=== PATIENT | female | born 1955 | race Caucasian/White ===

== ENCOUNTER 2020-03-25 11:24 | Inpatient (IN) | payer OTHER ==
[2020-03-25 12:02] LABS: BASOPHIL 0.3 % (0-2); BILIRUBIN NEGATIVE (NEGATIVE); BLOOD NEGATIVE Ery/uL (NEGATIVE); CLARITY CLEAR (CLEAR); COLOR YELLOW (YELLOW); EOSINOPHIL 0.3 % (0-7); GLUCOSE (U) NORMAL (NORMAL); HCT 37.9 % (37.0-47.0); HGB 12.4 g/dl (12.5-16.0); LEUKOCYTES NEGATIVE Leu/uL (NEGATIVE); LYMPHOCYTE 18.2 % (15-48); MCH 31.1 pg (25.0-31.0); MCHC 32.7 g/dL (32.0-36.0); MONOCYTE 11.3 % (0-12); MPV 9.6 fL (6.0-9.5); NEUTROPHIL 69.3 % (41-80); NITRITE NEGATIVE (NEGATIVE); NRBC 0; PLT 322 K/uL (150-400); PROTEIN NEGATIVE (NEGATIVE); RBC 3.99 M/uL (4.20-5.40); RDW 13.2 % (11.5-14.0); SPECIFIC GRAVITY >=1.030 (1.001-1.030); UROBILINOGEN 0.2 mg/dL (0.2-1.0); WBC 14.2 K/uL (4.0-10.5)
[2020-03-25 12:19] LABS: ALBUMIN 3.5 g/dL (3.4-5.0); BILIRUBIN - TOTAL 0.3 mg/dL (0.2-1.0); BUN/CREAT RATIO (CALC) 17.9 RATIO; CREATININE 0.84 mg/dL (0.51-0.95); GLOBULIN (CALCULATION) 3.6 g/dL; POTASSIUM 4.2 mmol/L (3.5-5.1); TOTAL PROTEIN 7.1 g/dL (6.4-8.2)
[2020-03-25 12:23] LABS: LACTIC ACID 1.4 mmol/L (0.4-1.9)
[2020-03-25] MEDS ORDERED: VENTOLIN HFA IN18 GM INH (16:48)
[2020-03-25] MEDS ORDERED: ELIQUIS5 MG PO (16:49)
[2020-03-25] MEDS ORDERED: ZYRTEC10 MG PO (16:50)
[2020-03-25] MEDS ORDERED: CENTRUM SILVER1 EAC4 PO (16:50)
[2020-03-25] MEDS ORDERED: LASIX20 MG PO (16:51)
[2020-03-25] MEDS ORDERED: COZAAR100 MG PO (16:52)
[2020-03-25] MEDS ORDERED: SINGULAIR10 MG PO (16:52)
[2020-03-25] MEDS ORDERED: TOPROL XL 50 MG50 MG PO (16:52)
[2020-03-25] MEDS ORDERED: NITROQUIK SL0.4 MG SL (16:53)
[2020-03-25] MEDS ORDERED: PRILOSEC20 MG PO (16:53)
[2020-03-25] MEDS ORDERED: PREDNISONE 20MG20 MG PO (16:55)
[2020-03-25] MEDS ORDERED: ALDACTONE25 MG PO (16:56)
[2020-03-25] MEDS ORDERED: VENLAFAXINE HC225 MG PO (16:57)
[2020-03-25] MEDS ORDERED: [UNRECOGNIZED DRUG - REMARK] PO (16:57)
--- NOTE | 2020-03-25 18:30 | NUR ---
PER ORDER FROM DR ANNAMARIA OSWALD, 16FRENCH NG TUBE PLACED IN LEFT NARE. STAT KUB OBTAINED, DR KIM LOOKED AT XRAY AND GAVE VERBAL OKAY TO CONNECT NG TUBE TO LOW INTERMITTENT WALL SUCTION. PATIENT VOMITED DURING PROCEDURE, OTHERWISE TOLERATED NG TUBE PLACEMENT WITHOUT COMPLAINT
[2020-03-26 04:44] LABS: BASOPHIL 0.2 % (0-2); EOSINOPHIL 0.3 % (0-7); HCT 34.1 % (37.0-47.0); HGB 10.9 g/dl (12.5-16.0); LYMPHOCYTE 9.7 % (15-48); MCH 31.1 pg (25.0-31.0); MCV 97.2 fL (78.0-100.0); MONOCYTE 7.1 % (0-12); MPV 9.8 fL (6.0-9.5); NEUTROPHIL 82.3 % (41-80); NRBC 0; PLT 264 K/uL (150-400); RBC 3.51 M/uL (4.20-5.40); RDW 13.4 % (11.5-14.0); WBC 12.8 K/uL (4.0-10.5)
[2020-03-26 05:10] LABS: BILIRUBIN - TOTAL 0.5 mg/dL (0.2-1.0); BUN/CREAT RATIO (CALC) 23.5 RATIO; CREATININE 0.81 mg/dL (0.51-0.95); GLOBULIN (CALCULATION) 3.1 g/dL; MAGNESIUM 1.7 mg/dL (1.8-2.4); POTASSIUM 4.4 mmol/L (3.5-5.1); TOTAL PROTEIN 6.1 g/dL (6.4-8.2)
--- NOTE | 2020-03-26 11:55 | NUR ---
LIVES WITH BOYFRIEND; REPORTS SHE IS INDEPENDENT
[2020-03-27 05:35] LABS: BASOPHIL 0.2 % (0-2); EOSINOPHIL 2.2 % (0-7); HCT 32.7 % (37.0-47.0); HGB 10.4 g/dl (12.5-16.0); LYMPHOCYTE 23.1 % (15-48); MCH 31.8 pg (25.0-31.0); MCHC 31.8 g/dL (32.0-36.0); MONOCYTE 8.2 % (0-12); MPV 9.6 fL (6.0-9.5); NEUTROPHIL 65.9 % (41-80); NRBC 0; PLT 241 K/uL (150-400); RBC 3.27 M/uL (4.20-5.40); RDW 13.5 % (11.5-14.0); WBC 10.1 K/uL (4.0-10.5)
[2020-03-27 05:55] LABS: ALBUMIN 2.8 g/dL (3.4-5.0); BILIRUBIN - TOTAL 0.5 mg/dL (0.2-1.0); BUN/CREAT RATIO (CALC) 25.7 RATIO; CREATININE 0.74 mg/dL (0.51-0.95); POTASSIUM 4.1 mmol/L (3.5-5.1); TOTAL PROTEIN 5.8 g/dL (6.4-8.2)
--- NOTE | 2020-03-27 13:33 | NUR ---
NG TUBE FLUSHED WITH 60ML OF WATER AND HOOKED TO LOW WALL SUCTION ORDERED BY DR OSWALD.
[2020-03-28 04:45] LABS: BASOPHIL 0.2 % (0-2); EOSINOPHIL 0.9 % (0-7); HCT 32.6 % (37.0-47.0); HGB 10.1 g/dl (12.5-16.0); LYMPHOCYTE 17.5 % (15-48); MCH 31.1 pg (25.0-31.0); MCV 100.3 fL (78.0-100.0); MONOCYTE 9.1 % (0-12); MPV 9.7 fL (6.0-9.5); NEUTROPHIL 71.9 % (41-80); NRBC 0; PLT 255 K/uL (150-400); RBC 3.25 M/uL (4.20-5.40); RDW 13.2 % (11.5-14.0); WBC 10.6 K/uL (4.0-10.5)
[2020-03-28 05:07] LABS: ALBUMIN 2.7 g/dL (3.4-5.0); BILIRUBIN - TOTAL 0.5 mg/dL (0.2-1.0); CREATININE 0.63 mg/dL (0.51-0.95); GLOBULIN (CALCULATION) 3.2 g/dL; POTASSIUM 3.9 mmol/L (3.5-5.1); TOTAL PROTEIN 5.9 g/dL (6.4-8.2)
[2020-03-29 07:05] LABS: BASOPHIL 0.2 % (0-2); HCT 32.1 % (37.0-47.0); HGB 10.2 g/dl (12.5-16.0); LYMPHOCYTE 15.8 % (15-48); MCH 31.8 pg (25.0-31.0); MCHC 31.8 g/dL (32.0-36.0); MONOCYTE 8.7 % (0-12); MPV 9.8 fL (6.0-9.5); NEUTROPHIL 73.8 % (41-80); NRBC 0; PLT 244 K/uL (150-400); RBC 3.21 M/uL (4.20-5.40); RDW 13.2 % (11.5-14.0); WBC 9.3 K/uL (4.0-10.5)
[2020-03-29 07:37] LABS: ALBUMIN 2.7 g/dL (3.4-5.0); BILIRUBIN - TOTAL 0.5 mg/dL (0.2-1.0); BUN/CREAT RATIO (CALC) 26.7 RATIO; CREATININE 0.6 mg/dL (0.51-0.95); GLOBULIN (CALCULATION) 3.5 g/dL; POTASSIUM 3.9 mmol/L (3.5-5.1); TOTAL PROTEIN 6.2 g/dL (6.4-8.2)
--- NOTE | 2020-03-29 15:28 | NUR ---
DR. HOLDEN ANTICIPATES D/C HOME ON SATURDAY. HER NURSE, GEOFF, DOES NOT THINK PT. WILL REQUIRE ANY HOME HEALTH. ADVISED DR. HOLDEN OF THAT INFORMATION.
[2020-03-30 07:04] LABS: BASOPHIL 0.4 % (0-2); EOSINOPHIL 1.9 % (0-7); HCT 29.8 % (37.0-47.0); HGB 9.7 g/dl (12.5-16.0); LYMPHOCYTE 25.5 % (15-48); MCH 31.8 pg (25.0-31.0); MCHC 32.6 g/dL (32.0-36.0); MCV 97.7 fL (78.0-100.0); MONOCYTE 8.6 % (0-12); MPV 9.5 fL (6.0-9.5); NEUTROPHIL 63.1 % (41-80); NRBC 0; PLT 229 K/uL (150-400); RBC 3.05 M/uL (4.20-5.40); RDW 13.2 % (11.5-14.0); WBC 8.6 K/uL (4.0-10.5)
[2020-03-30 07:40] LABS: BUN/CREAT RATIO (CALC) 13.8 RATIO; CREATININE 0.58 mg/dL (0.51-0.95); POTASSIUM 3.6 mmol/L (3.5-5.1)
[2020-03-31 06:42] LABS: BASOPHIL 0.5 % (0-2); EOSINOPHIL 2.8 % (0-7); HCT 32.8 % (37.0-47.0); HGB 10.5 g/dl (12.5-16.0); LYMPHOCYTE 26.1 % (15-48); MCH 31.3 pg (25.0-31.0); MCV 97.9 fL (78.0-100.0); MONOCYTE 10.1 % (0-12); MPV 9.5 fL (6.0-9.5); NRBC 0; PLT 252 K/uL (150-400); RBC 3.35 M/uL (4.20-5.40); RDW 13.3 % (11.5-14.0); WBC 7.5 K/uL (4.0-10.5)
[2020-03-31 07:02] LABS: BUN/CREAT RATIO (CALC) 7.9 RATIO; CREATININE 0.63 mg/dL (0.51-0.95); POTASSIUM 3.4 mmol/L (3.5-5.1)
[2020-03-31] MEDS ORDERED: NORVASC5 MG PO (14:25)
== END 2020-03-31 15:10 | disposition home or self-care (01) | DRG 390 ==
LOC: FER 11:24 → FMS 14:52
PROVIDERS: Allergy & Immunology Allergy; Emergency Medicine; Internal Medicine; ADMIT Internal Medicine
PROC: 0D9670Z Drainage of Stomach with Drainage Device, Via Natural or Artificial Opening (ICD-10-PCS; principal; 2020-03-25)
DX: K56.51 Intestinal adhesions [bands], with partial obstruction (principal); I48.0 Paroxysmal atrial fibrillation; I10 Essential (primary) hypertension; J45.909 Unspecified asthma, uncomplicated; M72.2 Plantar fascial fibromatosis; F41.9 Anxiety disorder, unspecified; F32.9 Major depressive disorder, single episode, unspecified; G47.33 Obstructive sleep apnea (adult) (pediatric); Z20.828 Contact with and (suspected) exposure to other viral communicable diseases; K21.9 Gastro-esophageal reflux disease without esophagitis; R79.89 Other specified abnormal findings of blood chemistry; Z88.1 Allergy status to other antibiotic agents; Z88.0 Allergy status to penicillin; Z88.7 Allergy status to serum and vaccine; Z79.899 Other long term (current) drug therapy; Z79.01 Long term (current) use of anticoagulants; Z90.49 Acquired absence of other specified parts of digestive tract
CPT/HCPCS: 36415; 74018; 74019; 80048; 80053; 81003; 83605; 83690; 83735; 85025; 87040; J0743; J0780; J1170; J1956; J2270; J2405; J7030; Q9963; Q9967; U0002

== ENCOUNTER 2021-05-25 00:01 | Emergency (ER) | payer MEDICARE ==
[~2021-05-25 00:01] MED LIST: ALDACTONE25 MG PO; CENTRUM SILVER1 EAC4 PO; COZAAR100 MG PO; ELIQUIS5 MG PO; LASIX20 MG PO; NITROQUIK SL0.4 MG SL; NORVASC5 MG PO; PREDNISONE 20MG20 MG PO; PRILOSEC20 MG PO; SINGULAIR10 MG PO; TOPROL XL 50 MG50 MG PO; VENLAFAXINE HC225 MG PO; VENTOLIN HFA IN18 GM INH; ZYRTEC10 MG PO; [UNRECOGNIZED DRUG - REMARK] PO
[2021-05-25] MEDS ORDERED: NORCO 5-325 TA1 EACH PO ×2 (01:53→02:06)
== END 2021-05-25 02:10 | disposition home or self-care (01) ==
LOC: FER 00:01
DX: S93.412A Sprain of calcaneofibular ligament of left ankle, initial encounter (principal); S93.492A Sprain of other ligament of left ankle, initial encounter; Z88.0 Allergy status to penicillin; Z88.1 Allergy status to other antibiotic agents; Y92.009 Unspecified place in unspecified non-institutional (private) residence as the place of occurrence of the external cause; W10.9XXA Fall (on) (from) unspecified stairs and steps, initial encounter
CPT/HCPCS: 73610; 73630